=== PATIENT | female | born 1980 | race Two or more races ===

== ENCOUNTER 2018-02-26 06:55 | Inpatient (IN) | payer OTHER ==
[~2018-02-26] VITALS: Ht 160 cm; Wt 84.3 kg
[2018-02-26] MEDS ORDERED: ceFAZolin 1GM VL ONE (07:15)
[2018-02-26] MEDS ORDERED: POVIDONE IODINE 10 % TOPICAL OINT 30GM TOP ONE (07:16)
[2018-02-26] MEDS ORDERED: BUPIVACAINE HCL 0.25% P/F 10 ML VIAL ONE (07:16)
[2018-02-26] MEDS ORDERED: LIDOCAINE 1% (LOCAL ANESTH.) PF 5ml SDV ONE (07:17)
[2018-02-26] MEDS ORDERED: KETOROLAC TROMETH 30 MG/ML 1ML VIAL IV ONE (07:30)
[2018-02-26] MEDS ORDERED: METOCLOPRAMIDE HCL 5MG/ml INJ 2ml VIAL IV ONE (07:30)
[2018-02-26] MEDS ORDERED: ceFAZolin 1GM/50ML 50 ML IV ONE (07:31)
[2018-02-26] MEDS ORDERED: SUCCINYLCHOLINE CHLORIDE 20 MG/ML 10ML VIAL IV ONE (07:53)
[2018-02-26] MEDS ORDERED: MIDAZOLAM HCL 1MG/1ML-2 ML VIAL ONE (07:58)
[2018-02-26] MEDS ORDERED: ONDANSETRON HCL 4 MG/2 ML VIAL ONE (07:58)
[2018-02-26] MEDS ORDERED: ROCURONIUM 10MG/ML 10ML VIAL IV ONE (07:58)
[2018-02-26] MEDS ORDERED: PROPOFOL 10 MG/ML 20 ML IV ONE (07:58)
[2018-02-26] MEDS ORDERED: SODIUM CHLORIDE LOCK 20 ML ONE (07:58)
[2018-02-26] MEDS ORDERED: fentaNYL CITRATE 100 MCG/2 ML VL ONE (07:58)
[2018-02-26] MEDS ORDERED: diphenhdrAMINE HCL 50 MG/1 ML VL ONE (08:29)
[2018-02-26] MEDS ORDERED: MEPERIDINE HCL (50 MG/ML) 1 ML VIAL ONE (08:34)
[2018-02-26] MEDS ORDERED: KETOROLAC TROMETH 60MG/2ML VIAL IM ONE (08:36)
[2018-02-26] MEDS ORDERED: NEOSTIGMINE 1 MG/ML INJ (10mg/10ML VIAL) ONE (08:37)
[2018-02-26] MEDS ORDERED: GLYCOPYRROLATE 0.2 MG/ML 1ML VIAL ONE (08:37)
[2018-02-26] MEDS: HYDROmorphone HCL 2 MG/ML VL IV PRN ×3 (09:56→21:29)
[2018-02-26] MEDS ORDERED: ALBUTEROL SULF 2.5 MG/0.5ML(0.5%) NEB SOLN NEB PRN (10:15)
[2018-02-26] MEDS ORDERED: MORPHINE SULFATE 4 MG/ML SYR/VIAL IV PRN (10:15)
[2018-02-26] MEDS ORDERED: NITROGLYCERIN 0.4 MG SL TAB SL PRN (10:15)
[2018-02-26] MEDS: D5W/SOD CHL 0.45%/KCL 20MEQ 1,000 ML IV SCH (12:02)
[2018-02-26 13:00] VITALS: BP 106/60
[2018-02-26] MEDS: ceFAZolin 1GM/50ML 50 ML IV SCH ×2 (15:25→21:33)
[2018-02-26 16:51] VITALS: BP 106/59
[2018-02-26] MEDS: HYDROcodone-ACET 10/325MG TAB PO PRN (17:50)
[2018-02-26] MEDS: DOCUSATE SOD 100 MG CAP PO SCH (21:26)
[2018-02-26] MEDS: ONDANSETRON HCL 4 MG/2 ML VIAL IV PRN (21:29)
[2018-02-26] MEDS: LACTULOSE 20Gm/30ML SOLN PO SCH (21:34)
[2018-02-26 22:00] VITALS: BP 122/68
[2018-02-27] VITALS (7 sets, daily range): BP systolic 100–132; BP diastolic 50–70
[2018-02-27] MEDS: D5W/SOD CHL 0.45%/KCL 20MEQ 1,000 ML IV SCH ×2 (00:53→18:40)
[2018-02-27] MEDS: ONDANSETRON HCL 4 MG/2 ML VIAL IV PRN ×2 (03:01→09:52)
[2018-02-27] MEDS: ceFAZolin 1GM/50ML 50 ML IV SCH ×3 (05:55→21:21)
[2018-02-27] MEDS: DOCUSATE SOD 100 MG CAP PO SCH ×2 (09:53→21:21)
[2018-02-27] MEDS: LACTULOSE 20Gm/30ML SOLN PO SCH ×2 (09:53→21:21)
[2018-02-27] MEDS: HYDROmorphone HCL 2 MG/ML VL IV PRN (09:53)
[2018-02-27] MEDS: HYDROcodone-ACET 10/325MG TAB PO PRN (21:18)
[2018-02-28] MEDS: D5W/SOD CHL 0.45%/KCL 20MEQ 1,000 ML IV SCH (01:15)
[2018-02-28 05:00] VITALS: BP 103/53
[2018-02-28] MEDS: ceFAZolin 1GM/50ML 50 ML IV SCH ×2 (05:30→16:05)
[2018-02-28] MEDS: HYDROcodone-ACET 10/325MG TAB PO PRN (05:41)
[2018-02-28 08:00] VITALS: BP 106/55
[2018-02-28 09:00] VITALS: BP 106/55
[2018-02-28] MEDS: DOCUSATE SOD 100 MG CAP PO SCH (09:51)
[2018-02-28] MEDS: LACTULOSE 20Gm/30ML SOLN PO SCH (09:51)
[2018-02-28 13:00] VITALS: BP 103/58
[2018-02-28 17:00] VITALS: BP 113/59
[2018-02-28 17:33] VITALS: BP 113/59
== END 2018-02-28 18:00 | disposition home or self-care (01) | DRG 355 ==
LOC: SUR 06:55 → EEVIPCON 06:56 → TELE-EAST 06:56
PROVIDERS: ADMIT Surgery; ATTEND Internal Medicine
PROC: 0WQF0ZZ Repair Abdominal Wall, Open Approach (ICD-10-PCS; principal; 2018-02-26 08:15)
DX: K42.0 Umbilical hernia with obstruction, without gangrene (principal); J45.909 Unspecified asthma, uncomplicated; Z82.49 Family history of ischemic heart disease and other diseases of the circulatory system; Z87.891 Personal history of nicotine dependence
CPT/HCPCS: 36415; 84702; J0330; J0690; J1885; J2250; J2405; J2704; J3490